=== PATIENT | female | born 1985 | race Caucasian/White ===

== ENCOUNTER 2022-06-09 14:02 | Emergency (ER) | payer OTHER ==
[2022-06-09] MEDS ORDERED: Sodium Chloride 0.9% 10 ML Syringe FLUSH PRN (15:40)
[2022-06-09] MEDS ORDERED: Sodium Chloride 0.9% 2.5 ML Syringe FLUSH PRN (15:40)
[2022-06-09 16:54] LABS: POTASSIUM,K 3.5 mmol/L (3.5-5.1)
[2022-06-09 18:13] VITALS: BP 142/80; PULSE 98
== END 2022-06-09 18:40 | disposition home or self-care (01) ==
LOC: MW.ED 14:02 → MERGE 14:02 → EDBD 14:02 → MW.ED 18:40
DX: R00.2 Palpitations (principal); R55 Syncope and collapse
CPT/HCPCS: 36415; 80048; 81003; 81025; 84443; 85025; 93005; 99285; J3490; 93010; 99283

== ENCOUNTER 2023-09-04 12:59 | Emergency (ER) | payer OTHER ==
[2023-09-04] MEDS: Sodium Chloride 0.9% 2.5 ML Syringe FLUSH PRN (13:36)
[2023-09-04] MEDS: Sodium Chloride 0.9% 1,000 ML IV STA (13:36)
[2023-09-04] MEDS: Sodium Chloride 0.9% 10 ML Syringe FLUSH PRN (13:37)
[2023-09-04 13:49] LABS: BASOPHILS ABSOLUTE AUTO 0.01 K/uL (0.00-0.20); BASOPHILS PERCENT AUTO 0.5 % (0.0-1.0); EOSINOPHILS ABSOLUTE AUTO 0.22 K/uL (0.00-0.45); EOSINOPHILS PERCENT AUTO 10.6 % (0.0-6.0); HEMATOCRIT 41.5 % (37.0-47.0); HEMOGLOBIN 14.7 g/dL (12.0-16.0); IMMATURE GRAN ABSOLUTE AUTO 0.03 K/uL (0.00-0.05); IMMATURE GRAN PERCENT AUTO 1.4 % (0.0-0.4); LYMPHOCYTES ABSOLUTE AUTO 0.69 K/uL (1.00-4.80); LYMPHOCYTES PERCENT AUTO 33.3 % (24.0-44.0); MEAN CORPUSCULAR HEMOGLOBIN 30.7 pg (28.0-32.0); MEAN CORPUSCULAR HGB CONC 35.4 g/dL (32.0-36.0); MEAN CORPUSCULAR VOLUME 86.6 fL (83.0-99.0); MEAN PLATELET VOLUME 8.9 fL (9.4-12.3); MONOCYTES ABSOLUTE AUTO 0.25 K/uL (0.00-0.80); MONOCYTES PERCENT AUTO 12.1 % (0.0-8.0); NEUTROPHILS ABSOLUTE AUTO 0.87 K/uL (1.80-7.70); NEUTROPHILS PERCENT AUTO 42.1 % (41.0-71.0); RED BLOOD CELL COUNT 4.79 M/uL (4.10-5.30); WHITE BLOOD CELL COUNT,WBC 2.07 K/uL (3.9-11.3)
[2023-09-04 13:55] LABS: PLATELET COUNT,PLT 177 K/uL (150-400)
[2023-09-04] MEDS: Acetaminophen 325 MG Tab PO ONE (13:57)
[2023-09-04 14:07] LABS: ALBUMIN 3.9 g/dL (3.4-5.0); BILIRUBIN TOTAL 0.4 mg/dL (0.2-1.0); CALCIUM 8.6 mg/dL (8.5-10.1); CARBON DIOXIDE,CO2 26.7 mmol/L (21.0-32.0); CREATININE 1.2 mg/dL (0.6-1.0); EST CRCL DRUG DOSING (CG) 59.51 mL/min; POTASSIUM,K 3.4 mmol/L (3.5-5.1); PROTEIN TOTAL,TP 7.8 g/dL (6.4-8.2)
[2023-09-04 15:46] VITALS: BP 124/74; PULSE 94
== END 2023-09-04 15:46 | disposition home or self-care (01) ==
LOC: MW.ED 12:59
DX: T88.7XXA Unspecified adverse effect of drug or medicament, initial encounter (principal); Z88.2 Allergy status to sulfonamides; Z88.8 Allergy status to other drugs, medicaments and biological substances
CPT/HCPCS: 36415; 80053; 83605; 85025; 87040; 99283; A9270; J3490; J7030